=== PATIENT | female | born 1955 ===

== ENCOUNTER 2020-10-16 14:36 | Outpatient (CLI) | payer BC, SELFPAY ==
--- NOTE | 2020-10-16 12:33 | DI.RAD_ITS ---
Exam(s) XR TIB/FIB LT XR KNEE LT 3V AP,LAT,NICO EXAM: XR KNEE LT 3V AP,LAT,NICO CLINICAL HISTORY: KNEE PAIN, LT M25.562 TECHNIQUE: COMPARISON: CR XR TIB/FIB LT from 10/16/2020 CR XR ANKLE LT COMPLETE from 10/16/2020 FINDINGS: Three views of the knee and two views of the leg were obtained. There is no evidence of acute fractu re or dislocation. There may be a small knee joint effusion. IMPRESSION: RADIATION DOSE DELIVERED: Total DLP
--- NOTE | 2020-10-16 12:34 | DI.RAD_ITS ---
Exam(s) XR ANKLE LT COMPLETE EXAM: XR ANKLE LT COMPLETE CLINICAL HISTORY: LT ANKLE PAIN M25.572 TECHNIQUE: COMPARISON: No exams were available for comparison FINDINGS: Three views were obtained. The ankle mortise is well maintained. There is no evidence of acute frac ture or dislocation. Note is made of a prominent enthesophyte of the plantar fascia attachment on th e calcaneus. There is apparent old fixation of the 1st metatarsal which is partially visualized. IMPRESSION: RADIATION DOSE DELIVERED: Total DLP
--- NOTE | 2020-10-16 12:34 | DI.RAD_ITS ---
Exam(s) XR HIP LT COMPLETE AP PELVIS EXAM: XR HIP LT COMPLETE AP PELVIS CLINICAL HISTORY: HIP JT PAIN LT M25.552 TECHNIQUE: COMPARISON: No exams were available for comparison FINDINGS: Two views were obtained. 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 There is no evidence of an acute fracture or dislocation. The SI joints appear well maintained. IMPRESSION: RADIATION DOSE DELIVERED: Total DLP
== END 2020-10-16 14:56 ==
PROVIDERS: Visit Provider Physician Assistant Medical
DX: M25.562 Pain in left knee (principal); M25.552 Pain in left hip; M16.0 Bilateral primary osteoarthritis of hip; M25.572 Pain in left ankle and joints of left foot
CPT/HCPCS: 73562; 73502; 73590; 73610